=== PATIENT | male | born 1940 | race Caucasian/White ===

== ENCOUNTER → 2020-02-04 10:49 | Outpatient (BNVA) | payer MEDICARE, SELFPAY | PROVIDERS: Family Provider Family Medicine; PCP Family Medicine; Referring Provider Family Medicine; Visit Provider Family Medicine | DX: E03.8 Other specified hypothyroidism (principal); E06.3 Autoimmune thyroiditis; M25.50 Pain in unspecified joint; R97.20 Elevated prostate specific antigen [PSA]; K21.9 Gastro-esophageal reflux disease without esophagitis | CPT/HCPCS: 80053; 84439; 84443; 85025; G0103 ==

== ENCOUNTER → 2020-08-17 11:31 | Outpatient (BNVA) | payer MEDICARE, SELFPAY | PROVIDERS: Family Provider Family Medicine; PCP Family Medicine; Visit Provider Family Medicine | DX: Z00.00 Encounter for general adult medical examination without abnormal findings (principal); R97.20 Elevated prostate specific antigen [PSA]; Z68.21 Body mass index [BMI] 21.0-21.9, adult; Z71.89 Other specified counseling | CPT/HCPCS: G0103 ==

== ENCOUNTER → 2020-11-13 08:25 | Outpatient (BNVA) | payer MEDICARE, SELFPAY | PROVIDERS: Family Provider Family Medicine; PCP Family Medicine; Visit Provider Family Medicine | DX: R97.20 Elevated prostate specific antigen [PSA] (principal) | CPT/HCPCS: 84153 ==

== ENCOUNTER → 2021-05-19 10:38 | Outpatient (BNVA) | payer MEDICARE, SELFPAY | PROVIDERS: Family Provider Family Medicine; PCP Family Medicine; Visit Provider Family Medicine | DX: Z00.00 Encounter for general adult medical examination without abnormal findings (principal); E03.8 Other specified hypothyroidism; K29.70 Gastritis, unspecified, without bleeding; R97.20 Elevated prostate specific antigen [PSA]; M25.50 Pain in unspecified joint; Z68.21 Body mass index [BMI] 21.0-21.9, adult; Z71.89 Other specified counseling; E06.3 Autoimmune thyroiditis | CPT/HCPCS: 80053; 82150; 84153; 84443; 85025 ==

== ENCOUNTER → 2022-05-23 16:30 | Outpatient (BNVA) | payer MEDICARE, SELFPAY | PROVIDERS: Family Provider Family Medicine; PCP Family Medicine; Visit Provider Family Medicine | DX: E03.8 Other specified hypothyroidism (principal); E06.3 Autoimmune thyroiditis; M25.50 Pain in unspecified joint; R97.20 Elevated prostate specific antigen [PSA]; K21.9 Gastro-esophageal reflux disease without esophagitis | CPT/HCPCS: 80053; 84153; 84443; 85025; 86140 ==

== ENCOUNTER → 2022-11-01 09:33 | Outpatient (BNVA) | payer SELFPAY | PROVIDERS: Family Provider Family Medicine; PCP Family Medicine; Visit Provider Dermatology | DX: Z01.89 Encounter for other specified special examinations (principal); Z13.6 Encounter for screening for cardiovascular disorders ==

== ENCOUNTER → 2023-06-12 10:15 | Outpatient (BNVA) | payer MEDICARE, SELFPAY | PROVIDERS: Family Provider Family Medicine; PCP Family Medicine; Visit Provider Family Medicine | DX: E03.8 Other specified hypothyroidism (principal); E06.3 Autoimmune thyroiditis; R79.89 Other specified abnormal findings of blood chemistry; R97.20 Elevated prostate specific antigen [PSA]; M25.50 Pain in unspecified joint | CPT/HCPCS: 80053; 82672; 84403; 84443; 85025; G0103 ==

== ENCOUNTER → 2023-11-21 10:19 | Outpatient (BNVA) | payer MEDICARE, SELFPAY | PROVIDERS: Family Provider Family Medicine; PCP Family Medicine; Visit Provider Family Medicine | DX: R79.89 Other specified abnormal findings of blood chemistry (principal); R97.20 Elevated prostate specific antigen [PSA] | CPT/HCPCS: 84403; G0103 ==

== ENCOUNTER → 2024-11-21 13:37 | Outpatient (BNVA) | payer MEDICARE, SELFPAY | PROVIDERS: Family Provider Family Medicine; PCP Family Medicine; Visit Provider Family Medicine | DX: E03.8 Other specified hypothyroidism (principal); E06.3 Autoimmune thyroiditis; R97.20 Elevated prostate specific antigen [PSA]; R79.89 Other specified abnormal findings of blood chemistry | CPT/HCPCS: 80053; 84443; 85025; G0103 ==